=== PATIENT | male | born 1970 | race Two or more races ===

== ENCOUNTER → 2023-12-14 07:56 | Outpatient (CLI) | payer OTHER ==
[~2023-12-14 07:56] MED LIST: ALTACE10 MG; HUMALOG100 U/ML; LANTUS100 U/ML; LIPITOR20 MG
== END | disposition home or self-care (01) ==
LOC: NUCLEAR 07:56
PROVIDERS: ATTEND Internal Medicine Nephrology
DX: I65.29 Occlusion and stenosis of unspecified carotid artery (principal); R09.89 Other specified symptoms and signs involving the circulatory and respiratory systems; N18.6 End stage renal disease

== ENCOUNTER 2023-12-26 09:03 | Outpatient (CLI) | payer OTHER | END 2023-12-26 09:38 | disposition home or self-care (01) | LOC: TOM 09:03 | PROVIDERS: ATTEND Internal Medicine Nephrology | DX: N18.6 End stage renal disease (principal); Z13.818 Encounter for screening for other digestive system disorders ==

== ENCOUNTER 2024-01-25 09:54 | Outpatient (CLI) | payer OTHER | END 2024-01-25 09:55 | disposition home or self-care (01) | LOC: NUCLEAR 09:54 | PROVIDERS: ATTEND Internal Medicine Nephrology | DX: I80.3 Phlebitis and thrombophlebitis of lower extremities, unspecified (principal); I73.9 Peripheral vascular disease, unspecified; N18.6 End stage renal disease; Z01.810 Encounter for preprocedural cardiovascular examination; I87.2 Venous insufficiency (chronic) (peripheral) ==

== ENCOUNTER → 2024-01-26 10:05 | Outpatient (CLI) | payer OTHER | END | disposition home or self-care (01) | LOC: NUCLEAR 10:00 | PROVIDERS: ATTEND Internal Medicine Nephrology | DX: I80.3 Phlebitis and thrombophlebitis of lower extremities, unspecified (principal); I73.9 Peripheral vascular disease, unspecified; N18.6 End stage renal disease; Z01.810 Encounter for preprocedural cardiovascular examination ==